=== PATIENT | female | born 1975 | race Caucasian/White ===

== ENCOUNTER 2017-04-03 15:33 | Emergency (ER) | payer OTHER ==
[~2017-04-03] VITALS: Wt 108.9 kg
[~2017-04-03 15:33] MED LIST: 'PARAFON FORTE500 M1 PO; ADVAIR 250/501 EA INH; ALBUTEROL0.09 MG/A2 INH; AMOXICILLIN500 MG PO; ASPIRIN ENTERIC81 M1 PO; B12100 MC1 PO; BENADRYL25 M2 PO; CARDIZEM CD180 MG PO; CIPRO500 MG PO; DILTIAZEM HCL180 MG PO; DUONEB 3 MG/3 ML3 M1 INH; EFFEXOR XR75 M1 PO; HYDROCODONE BIT1 T11 PO; IBU800 M1 PO; MECLIZINE25 MG PO; NICOTINE T14 MG/24 H TD; OMNICEF300 MG PO; PREDNICOT20 MG PO; PREDNISONE10 MG PO; PREDNISONE20 M1 PO; PROPRANOLOL HCL20 M1 PO; PROPRANOLOL HCL20 MG PO; ROBITUSSIN AC 110 ML PO; SERTRALINE100 MG PO; SINGULAIR10 MG PO; SYMBICORT1 AE1 INH; TESSALON PERLE100 M1 PO; VENTOLIN H0.09 MG/AC INH; VOLTAREN50 M1 PO
[2017-04-03] MEDS ORDERED: VOLTAREN GEL1% T (16:16)
[2017-04-03 16:30] LABS: BASO % 0.2 % (0.0-1.0); EOS # 0.6 10*3/uL (0.0-0.4); EOS % 6.5 % (1.0-4.0); HEMATOCRIT 37.1 % (37.0-47.0); HEMOGLOBIN 11.7 g/dl (12.0-16.0); LYMPH # 2.2 10*3/uL (1.3-4.4); LYMPH % 26.2 % (27.0-41.0); MEAN CELL VOLUME 86.1 fl (81.0-99.0); MEAN CORPUSCULAR HGB 27.1 pg (27.0-31.0); MEAN CORPUSCULAR HGB CONC 31.5 g/dl (33.0-37.0); MEAN PLATELET VOLUME 11.5 fl (9.6-12.3); MONO # 0.8 10*3/uL (0.1-1.0); MONO % 9.8 % (3.0-9.0); NEUT # 4.8 10*3/uL (2.3-7.9); NEUT % 57.1 % (47.0-73.0); PLATELET COUNT AUTOMATED 337 10*3/uL (130-400); RED BLOOD COUNT 4.31 10*6/uL (4.10-5.10); RED CELL DISTRI WIDTH 13.7 % (0-14.5); WHITE BLOOD COUNT 8.4 10*3/uL (4.8-10.8)
[2017-04-03 16:46] LABS: ALBUMIN 3.5 gm/dl (3.1-4.5); ALKALINE PHOSPHATASE 61 U/L (45-117); BILIRUBIN, TOTAL 0.3 mg/dl (0.2-1.0); BUN 7 mg/dl (7-24); CARBON DIOXIDE 29 mmol/L (21-32); CHLORIDE 106 mmol/L (98-107); EST GLOM FILT AFRICAN AMERICAN > 60 ml/min; GLUCOSE 92 mg/dL (65-99); POTASSIUM 4.3 mmol/L (3.5-5.1); SGOT/AST 15 IU/L (3-35); SGPT/ALT 24 U/L (12-78); SODIUM 141 mmol/L (136-145); TOTAL PROTEIN 6.9 gm/dL (6.4-8.2)
[2017-04-03 16:48] LABS: TROPONIN I < 0.015 ng/ml (<0.045)
== END 2017-04-03 17:18 | disposition home or self-care (01) ==
LOC: ED 15:33
PROVIDERS: Student in an Organized Health Care Education/Training Program
DX: M25.552 Pain in left hip (principal); R60.0 Localized edema; M25.551 Pain in right hip; R06.02 Shortness of breath; J45.909 Unspecified asthma, uncomplicated; F17.200 Nicotine dependence, unspecified, uncomplicated; Z88.5 Allergy status to narcotic agent; Z79.899 Other long term (current) drug therapy

== ENCOUNTER 2017-04-28 19:30 | Emergency (ER) | payer OTHER ==
[~2017-04-28] VITALS: Ht 177.8 cm; Wt 108.9 kg
[~2017-04-28 19:30] MED LIST changes: +VOLTAREN GEL1% T
[2017-04-28] MEDS ORDERED: MOBIC7.5 MG PO (20:29)
[2017-04-28] MEDS ORDERED: Bactrim DS PO (20:29)
[2017-04-28] MEDS ORDERED: LOTRIMIN AF12 GM T (20:29)
== END 2017-04-28 20:37 | disposition home or self-care (01) ==
LOC: ED 19:30
DX: L02.211 Cutaneous abscess of abdominal wall (principal); B37.9 Candidiasis, unspecified; Z79.899 Other long term (current) drug therapy; Z88.5 Allergy status to narcotic agent; Z86.14 Personal history of Methicillin resistant Staphylococcus aureus infection

== ENCOUNTER 2017-07-01 20:01 | Inpatient (IN) | payer OTHER ==
[~2017-07-01] VITALS: Ht 178 cm; Wt 111.0 kg
[~2017-07-01 20:01] MED LIST changes: +Bactrim DS PO; +LOTRIMIN AF12 GM T; +MOBIC7.5 MG PO
[2017-07-01 20:19] VITALS: BP 162/100
[2017-07-01 20:22] LABS: BASO % 0.3 % (0.0-1.0); EOS # 0.6 10*3/uL (0.0-0.4); HEMATOCRIT 37.9 % (37.0-47.0); HEMOGLOBIN 12.1 g/dl (12.0-16.0); LYMPH # 2.7 10*3/uL (1.3-4.4); LYMPH % 24.3 % (27.0-41.0); MEAN CELL VOLUME 83.1 fl (81.0-99.0); MEAN CORPUSCULAR HGB 26.5 pg (27.0-31.0); MEAN CORPUSCULAR HGB CONC 31.9 g/dl (33.0-37.0); MEAN PLATELET VOLUME 11.2 fl (9.6-12.3); MONO % 8.6 % (3.0-9.0); NEUT # 6.8 10*3/uL (2.3-7.9); NEUT % 61.5 % (47.0-73.0); PLATELET COUNT AUTOMATED 357 10*3/uL (130-400); RED BLOOD COUNT 4.56 10*6/uL (4.10-5.10); RED CELL DISTRI WIDTH 14.2 % (0-14.5); WHITE BLOOD COUNT 11.1 10*3/uL (4.8-10.8)
[2017-07-01 20:32] LABS: ACT PARTIAL THROMBO TIME 23.4 SECONDS (20.8-31.5)
[2017-07-01 20:39] LABS: ALBUMIN 3.5 gm/dl (3.1-4.5); ALKALINE PHOSPHATASE 70 U/L (45-117); BUN 13 mg/dl (7-24); CHLORIDE 107 mmol/L (98-107); CREATININE 0.84 mg/dL (0.55-1.02); MAGNESIUM 1.8 mg/dL (1.5-2.1); POTASSIUM 3.7 mmol/L (3.5-5.1); SGOT/AST 22 IU/L (3-35); SGPT/ALT 36 U/L (12-78); SODIUM 138 mmol/L (136-145); TOTAL PROTEIN 7.4 gm/dL (6.4-8.2)
[2017-07-01 20:40] LABS: TROPONIN I < 0.015 ng/ml (<0.045)
[2017-07-01 22:30] VITALS: BP 138/92; BP 140/100
[2017-07-01] MEDS ORDERED: SERTRALINE HYDR50 MG PO (23:14)
[2017-07-01] MEDS ORDERED: BREO ELLIPTA 11 EACH INH (23:14)
--- NOTE | 2017-07-01 23:37 | NUR ---
HOME MEDICATIONS WITH PATIENT HAVE BEEN VERIFIED.
--- NOTE | 2017-07-01 23:54 | NUR ---
PATIENT IS RESTING IN BED. PATIENT DENIES ANY CHEST PAIN OR DISCOMFORT. PATIENT HAS NO FURTHER REQUESTS AT THIS TIME. SEE SHIFT ASSESSMENT. PATIENT HAS BEEN ORIENTED TO THE ROOM AND CALL LIGHT IS WITHIN REACH. PATIENT IS RECEIVING IV BOLUS OF NS. WILL CONTINUE TO MONITOR PATIENT.
--- NOTE | 2017-07-02 00:22 | NUR ---
Time: 2229 A 41 year old FEMALE admitted to 5E under services of JOHANNA MCKENNA DO. Pt. arrived via bed from ER. Chief complaint: CHEST PAIN, HTN. DAVE JOSE
[2017-07-02 04:00] VITALS: BP 118/61
--- NOTE | 2017-07-02 04:26 | NUR ---
PATIENT WAS SITTING UP IN BED. PATIENT HASN'T HAD ANY CHEST PAIN OR DISCOMFORT SINCE ADMISSION. PATIENTS BP IS WNL AND HAS NOT FURTHER REQUESTS AT THIS TIME. CALL LIGHT IS WITHIN REACH. PATIENT WAS REORIENTED TO THE ROOM AND DOOR WAS SHUT TO PROMOTE SLEEP. SEE SHIFT ASSESSMENT.
[2017-07-02 06:27] LABS: BASO % 0.3 % (0.0-1.0); EOS # 0.7 10*3/uL (0.0-0.4); HEMATOCRIT 37.5 % (37.0-47.0); LYMPH # 2.3 10*3/uL (1.3-4.4); LYMPH % 25.1 % (27.0-41.0); MEAN CELL VOLUME 83.7 fl (81.0-99.0); MEAN CORPUSCULAR HGB 26.8 pg (27.0-31.0); MEAN PLATELET VOLUME 11.4 fl (9.6-12.3); MONO % 10.5 % (3.0-9.0); NEUT # 5.3 10*3/uL (2.3-7.9); NEUT % 56.9 % (47.0-73.0); PLATELET COUNT AUTOMATED 310 10*3/uL (130-400); RED BLOOD COUNT 4.48 10*6/uL (4.10-5.10); RED CELL DISTRI WIDTH 14.2 % (0-14.5); WHITE BLOOD COUNT 9.3 10*3/uL (4.8-10.8)
[2017-07-02 06:55] LABS: ACT PARTIAL THROMBO TIME 24.1 SECONDS (20.8-31.5); INTERNATIONAL NORM RATIO 1.1 (2.0-3.5)
--- NOTE | 2017-07-02 06:56 | NUR ---
PATIENT SLEPT THROUGHOUT THE NIGHT WITHOUT ANY TROUBLE. PATIENT IS A&OX3 AND AMBULATORY. PATIENT CAN REPOSITION SELF AND PERFORM ADL'S INDEPENDENTLY. PATIENT DENIES ANY EPISODES OF CHEST PAIN THROUGHOUT THE NIGHT. SEE SHIFT ASSESSMENT. PATIENT ORIENTED TO ROOM AND CALL LIGHT IS WITHIN REACH.
[2017-07-02 06:58] LABS: ALKALINE PHOSPHATASE 62 U/L (45-117); BUN 10 mg/dl (7-24); CHLORIDE 109 mmol/L (98-107); CHOLESTEROL 161 mg/dL (<200); CREATININE 0.76 mg/dL (0.55-1.02); FREE T4 1.01 ng/dl (0.76-1.46); HDL CHOLESTEROL 29 mg/dl (40-60); LDL CHOLESTEROL 109 mg/dL (9-159); MAGNESIUM 2.1 mg/dL (1.5-2.1); PHOSPHOROUS 2.8 mg/dL (2.5-4.9); POTASSIUM 3.8 mmol/L (3.5-5.1); SGOT/AST 20 IU/L (3-35); SGPT/ALT 32 U/L (12-78); SODIUM 140 mmol/L (136-145); TOTAL PROTEIN 6.7 gm/dL (6.4-8.2); TRIGLYCERIDES 116 mg/dl (<150); VLDL CHOLESTEROL 23 mg/dL (6-40)
[2017-07-02 08:00] VITALS: BP 129/85
--- NOTE | 2017-07-02 08:22 | NUR ---
PT RESTING IN BED. NO DISTRESS NOTED.. NO VOICED C/O AT THIS TIME . WILL MONITOR
[2017-07-02 09:50] LABS: VITAMIN D, 25-HYDROXY 12.7 ng/mL (30-100)
[2017-07-02 12:00] VITALS: BP 126/78
[2017-07-02] MEDS ORDERED: PANTOPRAZOLE SO40 MG PO (14:11)
[2017-07-02] MEDS ORDERED: NATURE'S BLEND F1 MG PO (14:11)
[2017-07-02] MEDS ORDERED: DILTIAZEM CD240 MG PO (14:11)
[2017-07-02] MEDS ORDERED: VITAMIN D5000 UNI1 PO (14:11)
--- NOTE | 2017-07-02 14:50 | NUR ---
\Discharge instructions reviewed with patient/family. Patient receptive and verbalizes understanding. Follow-up care arranged. Written instructions given to patient/family. ZANE JOHNSTON
[2017-07-02] MEDS ORDERED: CARDIZEM CD180 MG PO (15:04)
== END 2017-07-02 14:50 | disposition home or self-care (01) | DRG 391 ==
LOC: ED 20:01 → 5E 21:16 → EDHOLD 21:16 → 5E 21:22
PROVIDERS: Emergency Medicine Emergency Medical Services; Hospitalist; ADMIT Internal Medicine
DX: K21.9 Gastro-esophageal reflux disease without esophagitis (principal); J18.9 Pneumonia, unspecified organism; R07.89 Other chest pain; E66.01 Morbid (severe) obesity due to excess calories; J45.909 Unspecified asthma, uncomplicated; I10 Essential (primary) hypertension; R73.03 Prediabetes; E53.8 Deficiency of other specified B group vitamins; I25.10 Atherosclerotic heart disease of native coronary artery without angina pectoris; E55.9 Vitamin D deficiency, unspecified; D72.810 Lymphocytopenia; Z98.891 History of uterine scar from previous surgery; Z90.49 Acquired absence of other specified parts of digestive tract; Z87.891 Personal history of nicotine dependence; Z82.49 Family history of ischemic heart disease and other diseases of the circulatory system; Z83.3 Family history of diabetes mellitus; Z82.5 Family history of asthma and other chronic lower respiratory diseases; Z84.89 Family history of other specified conditions; Z88.8 Allergy status to other drugs, medicaments and biological substances; Z79.82 Long term (current) use of aspirin; Z79.899 Other long term (current) drug therapy; Z68.35 Body mass index [BMI] 35.0-35.9, adult

== ENCOUNTER 2018-02-02 14:27 | Emergency (ER) | payer OTHER ==
[~2018-02-02] VITALS: Ht 177.8 cm; Wt 108.9 kg
[~2018-02-02 14:27] MED LIST changes: +BREO ELLIPTA 11 EACH INH; +DILTIAZEM CD240 MG PO; +NATURE'S BLEND F1 MG PO; +PANTOPRAZOLE SO40 MG PO; +SERTRALINE HYDR50 MG PO; +VITAMIN D5000 UNI1 PO
[2018-02-02] MEDS ORDERED: LIDOVEX60 GM T (14:56)
[2018-02-02] MEDS ORDERED: NYST SUSP PO (14:56)
[2018-02-02] MEDS ORDERED: ACYCLOVIR800 MG PO (14:56)
== END 2018-02-02 15:01 | disposition home or self-care (01) ==
LOC: ED 14:27
DX: B02.9 Zoster without complications (principal); B37.0 Candidal stomatitis; K21.9 Gastro-esophageal reflux disease without esophagitis; I10 Essential (primary) hypertension; J44.9 Chronic obstructive pulmonary disease, unspecified; E66.9 Obesity, unspecified; E11.9 Type 2 diabetes mellitus without complications; Z98.890 Other specified postprocedural states; Z90.49 Acquired absence of other specified parts of digestive tract; Z79.82 Long term (current) use of aspirin; Z79.899 Other long term (current) drug therapy; Z87.891 Personal history of nicotine dependence; Z88.6 Allergy status to analgesic agent

== ENCOUNTER → 2018-02-21 | Outpatient (CLI) | payer OTHER ==
[~2018-02-21] MED LIST changes: +ACYCLOVIR800 MG PO; +LIDOVEX60 GM T; +NYST SUSP PO
== END | disposition home or self-care (01) ==
LOC: RAD 10:50
DX: M16.0 Bilateral primary osteoarthritis of hip (principal); M25.652 Stiffness of left hip, not elsewhere classified

== ENCOUNTER 2019-11-10 09:37 | Emergency (ER) | payer OTHER ==
[2019-11-10] MEDS ORDERED: NYST SUSP PO (10:13)
[2019-11-10] MEDS ORDERED: CYCLOBENZAPRINE10 MG PO (10:13)
[2019-11-10] MEDS ORDERED: TYLENOL325 M1 PO (10:13)
[2019-11-10] MEDS ORDERED: DIFLUCAN150 MG PO (10:13)
[2019-11-10] MEDS ORDERED: NAPROSYN500 MG PO (10:13)
== END 2019-11-10 11:49 | disposition home or self-care (01) ==
LOC: ED 09:37
DX: M79.18 Myalgia, other site (principal); M54.2 Cervicalgia; M54.6 Pain in thoracic spine; N76.0 Acute vaginitis; B37.9 Candidiasis, unspecified; K21.9 Gastro-esophageal reflux disease without esophagitis; E66.9 Obesity, unspecified; I10 Essential (primary) hypertension; J45.909 Unspecified asthma, uncomplicated; Z79.899 Other long term (current) drug therapy; Z87.891 Personal history of nicotine dependence; Z88.6 Allergy status to analgesic agent